=== PATIENT | male | born 1945 | race Caucasian/White ===

== ENCOUNTER → 2019-05-15 14:32 | Outpatient (CLI) | payer MEDICARE, OTHER, SELFPAY ==
--- NOTE | 2019-05-15 | DI.ECHO.S_ITS ---
[facility] +---------+ : : [address] : [address] [place] : : : : [id number] : : : : Phone: [phone]---------+ Echocardiogram Report + + :Name: ARI BOOKER Study Date: 05/15/2019 Height: 71 in : :[facility] Weight: 238 lb : : Gender: Male BSA: 2.3 m2 : :: 1945 Age: 74 yrs BP: 146/84 mmHg: :Reason For Study: EDEMA : : Performed By: [facility] Staff : :Referring: LILY WAN : + + Interpretation Summary Mild concentric left ventricular hypertrophy with ejection fraction 60-65%. Grade I diastolic dysfunction. Mildly dilated left atrium. Moderate aortic regurgitation. The aortic root is moderately dilated. The ascending aorta is mildly enlarged. Procedure: A two-dimensional transthoracic echocardiogram with color flow and Doppler was performed. The study quality was technically adequate. There is no prior echocardiogram noted for this patient. The patient was in normal sinus rhythm during the exam. Left Ventricle: The left ventricle is normal in size. There is mild concentric left ventricular hypertrophy. The ejection fraction is estimated to be 60-65%. There are no obvious focal wall motion abnormalities noted but poor endocardial definition reduces the sensitivity for the detection of such. Diastolic parameters suggest a relaxation abnormality of the left ventricle, consistent with probable normal filling pressures. Right Ventricle: The right ventricle is normal in size and function. Atria: The left atrium is mildly dilated. Right atrial size is normal. The interatrial septum is intact with no evidence for an atrial septal defect. Mitral Valve: The mitral valve is normal in structure and function. There is trace mitral regurgitation. Aortic Valve: The aortic valve is trileaflet. The aortic valve opens well. There is moderate aortic regurgitation. Tricuspid Valve: The tricuspid valve is normal in structure and function. There is trace tricuspid regurgitation. Pulmonary artery pressures cannot be estimated because of the lack of a measurable TR jet velocity. Pulmonic Valve: The pulmonic valve is not well visualized. There is trace pulmonic regurgitation. Great Vessels: The aortic root is moderately dilated. The ascending aorta is mildly enlarged. The pulmonary artery is normal size. The inferior vena cava was not visualized. Pericardium/ Pleura There is no pericardial effusion. There is no pleural effusion. MMode/2D Measurements & Calculations LVIDd: 5.3 cm LVOT diam: 2.2 cm LVIDs: 3.6 cm Ao root diam: 4.8 cm FS: 32.2 % Aortic Jxn: 3.8 cm EPSS: 0.96 cm asc Aorta Diam: 4.0 cm IVSd: 1.3 cm LVPWd: 1.0 cm LV lo. diameter/BSA (cm/m^2): 2.3 LV sys. diameter/BSA (cm/m^2): 1.6 LA A2 area: 24.9 cm2 RA long axis: 5.9 cm LA A4 area: 23.7 cm2 RA area: 16.5 cm2 LA length (vol): 5.8 cm RA vol: 39.2 ml LA vol: 86.7 ml RA : 17.2 ml/m2 LA vol index: 38.2 ml/m2 TAPSE: 2.1 cm Doppler Measurements & Calculations Ao V2 max: 130.8 cm/sec LVOT Max Jean-Claude: 131.3 cm/sec Ao V2 mean: 86.8 cm/sec LV V1 max P.9 mmHg Ao max P.8 mmHg LV V1 VTI: 30.3 cm Ao mean P.5 mmHg ROD(I,D): 4.2 cm2 Ao V2 VTI: 27.5 cm ROD(V,D): 3.8 cm2 sev ratio: 1.1 ROD indexed to BSA (cm^2/m^2): 1.9 MV E max jean-claude: 39.1 cm/sec PA V2 max: 88.9 cm/sec MV A max jean-claude: 86.3 cm/sec PA V2 mean: 53.8 cm/sec MV E/A: 0.45 PA mean P.5 mmHg Med Peak E' Jean-Claude: 5.1 cm/sec PA Accel Time: 0.08 sec E/E' med: 7.7 Lat Peak E' Jean-Claude: 5.7 cm/sec E/E' lat: 6.9 E/e' average: 7.3 MV dec time: 0.30 sec SV(LVOT): 115.5 ml Electronically signed by: Syl Erazo on Reading Physician:05/15/2019 05:21 PM
== END ==
PROVIDERS: Visit Provider Physician Assistant Medical
DX: I35.1 Nonrheumatic aortic (valve) insufficiency (principal); I77.810 Thoracic aortic ectasia; R60.0 Localized edema
CPT/HCPCS: 93306

== ENCOUNTER → 2019-09-19 10:21 | Outpatient (CLI) | payer MEDICARE, SELFPAY ==
--- NOTE | 2019-09-19 | DI.US.S_ITS ---
PROCEDURE: US PERIPH VENOUS LOW EXTREM RT INDICATIONS: ASYMMETRIC EDEMA TECHNIQUE: Real-time imaging, as well as color and pulse Doppler interrogation, were performed of the lower extremity deep veins from the inguinal ligament to the popliteal fossa. COMPARISON: None. FINDINGS: The common femoral, femoral and popliteal veins are normally compressible, and free of intraluminal thrombus. Color and pulse Doppler demonstrate normal phasic intraluminal flow. There is normal augmentation response to distal compression maneuver. IMPRESSION: Negative for deep venous thrombosis. Note: Concordant preliminary findings given by the editor sound upon the completion of the examination to the anterior skin of the ordering provider's office at 10:59 AM on September 19, 2019. Dictated by: Daniel Santo M.D. on 09/19/2019 at 10:03 Approved by: Daniel Santo M.D. on 09/19/2019 at 10:04
== END ==
PROVIDERS: Referring Provider Internal Medicine; Visit Provider Internal Medicine
DX: R60.0 Localized edema (principal)
CPT/HCPCS: 93971